=== PATIENT | female | born 1960 | race Caucasian/White ===

== ENCOUNTER 2021-02-02 20:31 | Inpatient (IN) | payer OTHER, SELFPAY ==
[2021-02-02 20:28] VITALS: BP 159/73; PULSE 96; RESP 16; TEMP 37; O2SAT 95; BMI 43.5
[2021-02-02 20:32] VITALS: BMI 43.5
--- NOTE | 2021-02-02 20:33 | XR_ITS ---
PROCEDURE INFORMATION: Exam: XR Chest Exam date and time: 02/02/2021 8:33 PM Age: 60 years old Clinical indication: Shortness of breath; Additional info: SOA TECHNIQUE: Imaging protocol: XR of the chest. Views: 2 views. COMPARISON: No relevant prior studies available. FINDINGS: Lungs: Patchy bilateral airspace opacities are seen. Pleural spaces: Unremarkable. No pleural effusion. No pneumothorax. Heart/Mediastinum: Unremarkable. No cardiomegaly. Bones/joints: Unremarkable. IMPRESSION: Patchy bilateral airspace opacities concerning for infection
[2021-02-02 20:41] LABS: Influenza A, PCR Not Detected (NotDetected); Influenza B, PCR Not Detected (NotDetected)
[2021-02-02 20:43] LABS: Basophils % 0.9 % (0.1-2.0); Eosinophils % 0.3 % (0.1-12.0); Hematocrit 41.9 % (37.0-47.0); Hemoglobin 14.2 g/dL (12.2-16.2); Lymphocytes # 0.9 K/mm3 (0.7-4.5); Lymphocytes % 20.7 % (10-50); Mean Corpuscular HGB Conc 33.8 g/dL (31.8-35.4); Mean Corpuscular Hemoglobin 31.9 pg (27.0-31.2); Mean Corpuscular Volume 94.3 fl (81-99); Mean Platelet Volume 7.9 fl (7.4-10.4); Monocytes # 0.4 K/mm3 (0.1-1.0); Monocytes % 8.6 % (1.7-9.3); Neutrophils # 3.1 K/mm3 (1.8-7.8); Neutrophils % 69.6 % (37.0-80.0); Platelet Count 409 K/mm3 (142-424); Red Blood Count 4.44 M/mm3 (4.20-5.40); Red Cell Distribution Width 12.5 % (11.5-17.5); White Blood Count 4.5 K/mm3 (4.8-10.8)
[2021-02-02 20:45] LABS: Chloride 97 mmol/L (98-107)
[2021-02-02 20:46] LABS: Potassium 3.4 mmoL/L (3.5-5.1); Sodium 137 mmol/L (136-145)
[2021-02-02 20:48] LABS: Alanine Aminotransferase 53 U/L (12-78); Alkaline Phosphatase 98 U/L (38-126); Aspartate Amino Transferase 62 U/L (14-36); Bilirubin,Total 0.4 mg/dl (0.2-1.3); Blood Urea Nitrogen 8 mg/dl (7-17); Creatinine Clearance Estimated 112 mL/min (50-200); Estimated Glomerular Filt Rate 126 ml/min (>60); GFR (African American) 152 ML/MIN (>60)
[2021-02-02 20:49] LABS: Albumin Level 3.7 g/dl (3.5-5.0); Albumin/Globulin Ratio 1.1 (1.1-1.8); Anion Gap 12.4 mEq/L (5-15); Calcium 9.1 mg/dl (8.4-10.2); Carbon Dioxide 31 mmol/L (22.0-30.0); Globulin 3.4 g/dL (1.3-3.2); Glucose 151 mg/dl (74-100); Total Protein,Serum 7.1 g/dl (6.3-8.2)
[2021-02-02 20:54] LABS: C-Reactive Protein 38.5 mg/L (0-4)
--- NOTE | 2021-02-02 21:05 | CT_ITS ---
PROCEDURE INFORMATION: Exam: CTA Chest With Contrast Exam date and time: 02/02/2021 9:05 PM Age: 60 years old Clinical indication: Cough and dyspnea; Patient HX: Covid R/O pe; Additional info: SOA TECHNIQUE: Imaging protocol: Computed tomographic angiography of the chest with contrast. 3D rendering (Not supervised by radiologist): MIP and/or 3D reconstructed images were created by the technologist. Radiation optimization: All CT scans at this facility use at least one of these dose optimization techniques: automated exposure control; mA and/or kV adjustment per patient size (includes targeted exams where dose is matched to clinical indication); or iterative reconstruction. Contrast material: ISOVUE 370; Contrast volume: 70 ml; Contrast route: INTRAVENOUS (IV); COMPARISON: CR XR CHEST 2V 02/02/2021 8:39 PM FINDINGS: Pulmonary arteries: Breathing motion limits exam. No evidence of pulmonary embolus to the lobar level. Aorta: Unremarkable. No aortic aneurysm. No aortic dissection. Lungs: Multifocal airspace opacities are seen. Pleural spaces: Unremarkable. No pneumothorax. No pleural effusion. Heart: Unremarkable. No cardiomegaly. No pericardial effusion. Lymph nodes: Mildly prominent mediastinal lymph nodes. Bones/joints: Unremarkable. No acute fracture. Soft tissues: Slightly asymmetric breast tissue. There is a probable lymph node seen on the right laterally that measures 10 mm. However, fatty hilum is not obvious. See image 121 of series 2. Recommend correlation with recent mammogram. IMPRESSION: 1. Breathing limits exam, but no evidence of pulmonary embolus to the lobar level. 2. Bilateral airspace disease compatible with infection. 3. Recommend correlation with recent mammography for better evaluation of probable lymph nodes and slightly asymmetric breast tissue.
--- NOTE | 2021-02-02 21:09 | HMH.EDSOB ---
ED Disposition Clinical Impression: Pneumonia due to COVID-19 virus Obesity Qualifiers: Obesity type: due to excess calories Obesity classification: adult class 3 (BMI >= 40) Serious obesity comorbidity presence: with serious comorbidity Body mass index: BMI 40.0-44.9 Qualified Code(s): E66.01 - Morbid (severe) obesity due to excess calories; Z68.41 - Body mass index [BMI]40.0-44.9, adult Disposition: Admitted as Observation Condition on Discharge: Good - Critical Care Critical Care Time: No Attestation: On 02/02/21, the high probability of a clinically significant, sudden or life threatening deterioration of the following system(s) required my full and direct attention, intervention and personal management. The time I documented below is in addition to time spent performing reported procedures but includes the following listed in this critical care notation. Medical Decision Making - Medical Records Medical records reviewed: Yes: I reviewed the patient's medical records. - [place] Inquiry Pt receiving controlled substance: No Vital Signs: 02/02/21 20:28 02/02/21 23:16 02/02/21 23:30 Temperature 98.6 F Temperature Source Oral Pulse Rate 92 H 92 H Pulse Rate [Right] 96 H Respiratory Rate 16 Blood Pressure 130/81 146/80 H Blood Pressure [Right Arm] 159/73 H Blood Pressure Mean [Right Arm] 101 Blood Pressure Source [Right Arm] Automatic Cuff 02 Sat by Pulse Oximetry 95 93 L 95 Oxygen Delivery Method Room Air 02/03/21 00:00 02/03/21 00:25 02/03/21 01:56 Temperature Temperature Source Pulse Rate 93 H 94 H 97 H Pulse Rate [Right] Respiratory Rate Blood Pressure 144/80 H 152/81 H 144/76 H Blood Pressure [Right Arm] Blood Pressure Mean [Right Arm] Blood Pressure Source [Right Arm] 02 Sat by Pulse Oximetry 93 L 88 L 91 L Oxygen Delivery Method 02/03/21 02:45 Temperature Temperature Source Pulse Rate 94 H Pulse Rate [Right] Respiratory Rate Blood Pressure 159/90 H Blood Pressure [Right Arm] Blood Pressure Mean [Right Arm] Blood Pressure Source [Right Arm] 02 Sat by Pulse Oximetry 90 L Oxygen Delivery Method - Lab Data Lab results reviewed: Yes: I reviewed the patient's lab results. Lab Results 02/02/21 20:30: WBC 4.5 L, RBC 4.44, Hgb 14.2, Hct 41.9, MCV 94.3, MCH 31.9 H, MCHC 33.8, RDW 12.5, Plt Count 409, MPV 7.9, Neut % (Auto) 69.6, Lymph % (Auto) 20.7, [place] % (Auto) 8.6, Eos % (Auto) 0.3, Baso % (Auto) 0.9, Neut # (Auto) 3.1, Lymph # (Auto) 0.9, [place] # (Auto) 0.4, Eos # (Auto) 0.0, Baso # (Auto) 0.0, ESR 93 H 02/02/21 20:30: Sodium 137, Potassium 3.4 L, Chloride 97 L, Carbon Dioxide 31 H, Anion Gap 12.4, BUN 8, Creatinine 0.50 L, Estimated Creat Clear 112, Estimated GFR 126, Est GFR ( Amer) 152, Glucose 151 H, Calcium 9.1, Total Bilirubin 0.4, AST 62 H, ALT 53, Alkaline Phosphatase 98, C-Reactive Protein 38.5 H, Total Protein 7.1, Albumin 3.7, Globulin 3.4 H, Albumin/Globulin Ratio 1.1, Procalcitonin 0.070 02/02/21 20:30: SARS-CoV-2 (PCR) Detected A, Influenza A Untype (PCR) Not detected, Influenza Type B (PCR) Not detected 02/02/21 20:30: Troponin I < 0.01 02/03/21 00:30: Troponin I < 0.01 Result diagrams: 02/02/21 20:30 02/02/21 20:30 Orders (Tests/Meds): ED MEDICATIONS Generic Name Dose Route Start Last Admin Trade Name Freq PRN Reason Stop Dose Admin Sodium Chloride 1,000 mls @ 999 mls/hr 02/02/21 20:45 02/02/21 20:59 Sod Chlor 0.9% 1000ml Bag IV 02/02/21 21:45 999 mls/hr .Q1H1M BO Administration Discontinued Medications Generic Name Dose Route Start Last Admin Trade Name Freq PRN Reason Stop Dose Admin Iopamidol 70 ml 02/02/21 22:01 02/02/21 22:02 Iopamidol-370 (76%);100ml Bottle IV 02/02/21 22:02 70 ml ONCE ONE Administration Ketorolac Tromethamine 30 mg 02/02/21 20:34 02/02/21 20:59 Ketorolac 30mg/Ml Vial IV 02/02/21 20:35 30 mg ONCE ONE Administration Methylprednisolone [place]
[2021-02-02 21:17] LABS: Coronavirus 19, PCR Detected (NotDetected)
[2021-02-02 21:19] LABS: Erythrocyte Sedimentation Rate 93 mm/hr (0-30)
[2021-02-02 21:29] LABS: Troponin I < 0.01 ng/ml (0.00-0.034)
--- NOTE | 2021-02-02 21:53 | PC.NURSE ---
to ct scan
[2021-02-02 23:16] VITALS: BP 130/81; PULSE 92; O2SAT 93
[2021-02-02 23:30] VITALS: BP 146/80; PULSE 92; O2SAT 95
[2021-02-03] VITALS (14 sets, daily range): BP systolic 136–168; BP diastolic 76–93; PULSE 84–98; RESP 16–22; TEMP 36.6–36.8; O2SAT 88–94; BMI 44.6
[2021-02-03 01:01] LABS: Troponin I < 0.01 ng/ml (0.00-0.034)
--- NOTE | 2021-02-03 02:45 | PC.NURSE ---
pt currently boarding in ER due to no bed available
[2021-02-03 04:59] LABS: Thyroid Stimulating Hormone 0.62 uIU/mL (0.465-4.68)
[2021-02-03 06:28] LABS: Basophils % 0.2 % (0.1-2.0); Eosinophils % 0.1 % (0.1-12.0); Hematocrit 42.5 % (37.0-47.0); Hemoglobin 14.5 g/dL (12.2-16.2); Lymphocytes # 0.4 K/mm3 (0.7-4.5); Lymphocytes % 15.6 % (10-50); Mean Corpuscular Hemoglobin 32.3 pg (27.0-31.2); Mean Corpuscular Volume 94.9 fl (81-99); Mean Platelet Volume 8.5 fl (7.4-10.4); Monocytes # 0.1 K/mm3 (0.1-1.0); Monocytes % 3.2 % (1.7-9.3); Neutrophils # 2.1 K/mm3 (1.8-7.8); Neutrophils % 80.9 % (37.0-80.0); Platelet Count 398 K/mm3 (142-424); Red Blood Count 4.48 M/mm3 (4.20-5.40); Red Cell Distribution Width 12.4 % (11.5-17.5); White Blood Count 2.6 K/mm3 (4.8-10.8)
[2021-02-03 06:33] LABS: Anion Gap 12.8 mEq/L (5-15); Blood Urea Nitrogen 11 mg/dl (7-17); Carbon Dioxide 29 mmol/L (22.0-30.0); Chloride 101 mmol/L (98-107); Chol/HDL Ratio 3.6 (1-3.5); Cholesterol 161 mg/dl (140-200); Creatinine Clearance Estimated 112 mL/min (50-200); Estimated Glomerular Filt Rate 126 ml/min (>60); GFR (African American) 152 ML/MIN (>60); Glucose 173 mg/dl (74-100); HDL Cholesterol 45 mg/dl (40-60); Magnesium 2.3 mg/dl (1.6-2.3); Potassium 3.8 mmoL/L (3.5-5.1); Sodium 139 mmol/L (136-145); Triglycerides 63 mg/dl (30-150); VLDL Cholesterol 13 mg/dL (0-40)
[2021-02-03 06:43] LABS: Direct LDL Cholesterol 86.31 mg/dL (100-129)
--- NOTE | 2021-02-03 07:45 | P.CONPHA_ITS ---
[facility] Pharmacy VTE Monitoring - Patient Demographics Admission date: 02/03/21 Report Date: 02/03/21 Time: 07:45 Allergies/Adverse Reactions: Patient Allergies No Known Allergies Allergy (Unverified 02/03/21 07:43) Height: 1.68 m Weight: 122.47 kg Patient Problems: Current Active Problems Pneumonia due to COVID-19 virus (Acute) Obesity (Acute) - VTE Risk Labs: VTE Related Lab Results Hgb 14.5 g/dL (12.2-16.2) 02/03/21 05:33 Hct 42.5 % (37.0-47.0) 02/03/21 05:33 Plt Count 398 K/mm3 (142-424) 02/03/21 05:33 BUN 11 mg/dl (7-17) D 02/03/21 05:33 Creatinine 0.50 mg/dl (0.52-1.04) L 02/03/21 05:33 Estimated Creat Clear 112 mL/min (50-200) 02/03/21 05:33 Clinical Trial Participant: No - Prophylaxis VTE Prophylaxis Ordered?: Yes Types of VTE Prophylaxis: TEDS Knee High
--- NOTE | 2021-02-03 08:02 | PC.NURSE ---
PT SITTING UP IN BED, O2 90% ON ROOM AIR, PLACED ON 2L NC. PT UP IN CHAIR FOR BREAKFAST.
--- NOTE | 2021-02-03 08:42 | PC.NURSE ---
spoke with dawitrn on second floor at this time, states she will call back after she finishes morning med pass, states that was okayed per house. States pt may need to board in ER a little longer r/t bed situation on the floor. manager of regulatory affairs made aware.
--- NOTE | 2021-02-03 09:25 | HMH.PULMCON ---
*Admission Date: 02/03/21 *Reason for consult:: Acute hypoxic respiratory failure, COVID-19 pneumonia *History of present illness: Ms. Martinez is 68-year-old female never smoker no prior respiratory complaints yet to be vaccinated presented to the hospital with complaints of worsening fatigue body pains along with worsening respiratory distress with cough and productive phlegm and when patient presented to the ED supplementation to maintain her O2 saturations at the desired level and pulmonary was called for further management. [facility] History *Have you ever received a pneumonia vaccine?: No *Have you received a flu vaccine this season?: No Other Surgeries: Yes: Other - *Social History Last grade of school completed: Some college Smoking Status: Never smoker Alcohol Intake: never Substance Use Type: denies use *Occupational Status:: other *Travel in the last 8 weeks: None Family Hx:: Other ROS - Cons Reports anorexia, Reports body ache(s), Reports chills - ENT Denies abnormal hearing - Card Reports shortness of breath, Reports shortness of breath with activity - Resp Respiratory: Reports chest congestion, Reports cough, Reports cough with sputum production - GI Gastrointestingal: Denies: abdominal pain - [place] Musculoskeletal: Denies deformity - Psych Reports abnormal sleep pattern Meds Home Medications Medication Instructions Recorded Confirmed Type No Known Home Medications 02/02/21 02/02/21 History Allergies Allergy/AdvReac Type Severity Reaction Status Date / Time No Known Allergies Allergy Unverified 02/03/21 07:43 Exam - Constitutional Constitutional:: Present: no acute distress, comfortable - HENMT Exam HENMT: Present: normocephalic, atraumatic - Eye Exam Eyes:: Present: normal appearance both eyes and related structures - Neck Exam Neck:: Present: normal visual inspection - Respiratory Exam Respiratory:: Present: able to speak in complete sentences, no respiratory distress, rales. Absent: wheezing - Cardiovascular Exam Cardiac:: Present: S1, S2 - GI Exam GI:: Present: soft, no hepatosplenomegaly - Skin Exam Skin: Present: warm, no rash - Neurological Exam Neurological: Present: alert, awake, normal cognition - Extremities Exam Extremities: Present: no cyanosis, no clubbing, no edema Internal Medicine - CN: Reslt - Labs CBC & Chem 7: 02/03/21 05:33 02/03/21 05:33 Labs: Short CBC 02/02/21 02/03/21 Range/Units 20:30 05:33 WBC 4.5 L 2.6 L D (4.8-10.8) K/mm3 Hgb 14.2 14.5 (12.2-16.2) g/dL Hct 41.9 42.5 (37.0-47.0) % Plt Count 409 398 (142-424) K/mm3 BMP 02/02/21 02/03/21 20:30 05:33 Sodium 137 139 Potassium 3.4 L 3.8 Chloride 97 L 101 Carbon Dioxide 31 H 29 BUN 8 11 D Creatinine 0.50 L 0.50 L Glucose 151 H 173 H Calcium 9.1 9.0 Cardiac Enzymes 02/02/21 02/03/21 Range/Units 20:30 00:30 Troponin I < 0.01 < 0.01 (0.00-0.034) ng/ml Liver Function 02/02/21 Range/Units 20:30 Total Bilirubin 0.4 (0.2-1.3) mg/dl AST 62 H (14-36) U/L ALT 53 (12-78) U/L Alkaline Phosphatase 98 (38-126) U/L Albumin 3.7 (3.5-5.0) g/dl Assessment and Plan - Assessment and plan all Dx Assessment and Plan for all problems:: #Acute hypoxic respiratory failure: #COVID-19 pneumonia: 60-year-old female no prior respiratory complaints. Never smoker. CT pulmonary nodule and several months of bilateral patchy airspace disease. Patient also noted to have mild nonspecific enlargement of mediastinal lymphadenopathy will be followed with repeat CT chest without contrast on outpatient basis post discharge. Patient also have soft tissue abnormalities that are recommended to be correlated by mammogram will defer this to primary team. Leukopenia with lymphopenia noted. CRP elevated at 38.5. Patient today on examination does not appear to be in any respiratory distress. She is on 2 L nasal cannula
--- NOTE | 2021-02-03 09:57 | PC.NURSE ---
REPORT GIVEN TO ODALYS SCHNEIDER.
--- NOTE | 2021-02-03 10:22 | HMH.HP ---
*Admission Date: 02/03/21 *Chief complaint: sob *History of present illness: this patient presented to [place] ed via ems with progressive malaise and sob with cough and dec po intake - pt with no def exposure to covid-19 - no vaccine - pt was seen in the ed with abn cxr and ct chest and had low pulse oxy with positive covid-19 and was admitted - [facility] History I have reviewed the patient's past medical history: Yes *Have you ever received a pneumonia vaccine?: No *Have you received a flu vaccine this season?: No - *Social History Smoking Status: Never smoker Alcohol Intake: never Substance Use Type: denies use *Occupational Status:: previously employed *Travel in the last 8 weeks: None Family Hx:: Non-contributory Review of Systems - Review of Systems Review of systems:: pertinent systems reviewed and negative unless documented below - Constitutional Reports fatigue, Reports malaise, Reports weakness, Denies fever(s) - Eyes Denies change in vision - ENT Denies sore throat - *Cardiovascular Reports shortness of breath, Denies chest pain - *Respiratory Reports cough, Reports shortness of breath, Denies coughing up blood - *Gastrointestinal Reports nausea, Denies abdominal pain, Denies vomiting - *Genitourinary Denies pelvic pain - *Musculoskeletal Denies joint pain - Integumentary/Breasts Denies rash - *Neurologic Denies localized weakness, Denies headache(s), Denies seizure-like activity - Psychiatric Denies confusion Meds Home Medications Medication Instructions Recorded Confirmed Type No Known Home Medications 02/02/21 02/02/21 History Allergies Allergy/AdvReac Type Severity Reaction Status Date / Time No Known Allergies Allergy Unverified 02/03/21 07:43 Exam Vital signs and Labs for Last 24 Hours: Temp Pulse Resp BP Pulse Ox 97.8 F 96 H 18 168/83 H 89 L 02/03/21 08:05 02/03/21 08:05 02/03/21 08:05 02/03/21 08:05 02/03/21 04:30 Laboratory Results - last 24 hr 02/02/21 20:30: WBC 4.5 L, RBC 4.44, Hgb 14.2, Hct 41.9, MCV 94.3, MCH 31.9 H, MCHC 33.8, RDW 12.5, Plt Count 409, MPV 7.9, Neut % (Auto) 69.6, Lymph % (Auto) 20.7, [place] % (Auto) 8.6, Eos % (Auto) 0.3, Baso % (Auto) 0.9, Neut # (Auto) 3.1, Lymph # (Auto) 0.9, [place] # (Auto) 0.4, Eos # (Auto) 0.0, Baso # (Auto) 0.0, ESR 93 H 02/02/21 20:30: Sodium 137, Potassium 3.4 L, Chloride 97 L, Carbon Dioxide 31 H, Anion Gap 12.4, BUN 8, Creatinine 0.50 L, Estimated Creat Clear 112, Estimated GFR 126, Est GFR ( Amer) 152, Glucose 151 H, Calcium 9.1, Total Bilirubin 0.4, AST 62 H, ALT 53, Alkaline Phosphatase 98, C-Reactive Protein 38.5 H, Total Protein 7.1, Albumin 3.7, Globulin 3.4 H, Albumin/Globulin Ratio 1.1, Procalcitonin 0.070 02/02/21 20:30: SARS-CoV-2 (PCR) Detected A, Influenza A Untype (PCR) Not detected, Influenza Type B (PCR) Not detected 02/02/21 20:30: Troponin I < 0.01 02/03/21 00:30: Troponin I < 0.01 02/03/21 00:30: TSH 0.62, Thyroxine (T4) 12.0 H 02/03/21 05:33: WBC 2.6 L D, RBC 4.48, Hgb 14.5, Hct 42.5, MCV 94.9, MCH 32.3 H, MCHC 34.0, RDW 12.4, Plt Count 398, MPV 8.5, Neut % (Auto) 80.9 H, Lymph % (Auto) 15.6, [place] % (Auto) 3.2, Eos % (Auto) 0.1, Baso % (Auto) 0.2, Neut # (Auto) 2.1, Lymph # (Auto) 0.4 L, [place] # (Auto) 0.1, Eos # (Auto) 0.0, Baso # (Auto) 0.0 02/03/21 05:33: Sodium 139, Potassium 3.8, Chloride 101, Carbon Dioxide 29, Anion Gap 12.8, BUN 11 D, Creatinine 0.50 L, Estimated Creat Clear 112, Estimated GFR 126, Est GFR ( Amer) 152, Glucose 173 H, Calcium 9.0, Magnesium 2.3, Triglycerides 63, Cholesterol 161, LDL Cholesterol Direct 86.31 L, VLDL Cholesterol 13, HDL Cholesterol 45, Cholesterol/HDL Ratio 3.6 H I & O for Last 24 hours: Intake & Output 01/31/21 02/01/21 02/02/21 02/03/21 11:59 11:59 11:59 11:59 Weight 270 lb - Constitutional no acute distress, obese - *Routine HEENT Exam Head: Present: normocephalic Eye: Present: EOMI, PERRL ENT: Present: mucous membran
--- NOTE | 2021-02-03 15:38 | PC.NURSE ---
PT IS RESTING IN BED. NO COMPLAINTS OF DISCOMFORT. PT STATES SHE IS FEELING BETTER SINCE ARRIVING TO THE HOSPITAL. O2 SATURATION HAS MAINTAINED 92-95% ON 2 L NC. PT HAS BEEN AMBULATING TO THE BATHROOM. EATING AND DRINKING WELL. LUNG SOUNDS DIMINISHED. ABDOMEN SOFT/NON TENDER WITH ACTIVE BOWEL SOUNDS.VSS. WILL CONTINUE TO MONITOR.
[2021-02-04] VITALS: BP 137/71; PULSE 76; RESP 18; TEMP 36.3; O2SAT 96
[2021-02-04 04:00] VITALS: BP 156/90; PULSE 89; RESP 16; TEMP 36.5; O2SAT 94
--- NOTE | 2021-02-04 04:31 | PC.NURSE ---
pt AxOx4, has remained on 2L NC for the shift, O2 sats 91-96%, has not complained of SOA
[2021-02-04 05:04] VITALS: BMI 44.1
[2021-02-04 06:50] VITALS: O2SAT 94
[2021-02-04 07:12] LABS: Basophils % 0.7 % (0.1-2.0); Eosinophils % 0.7 % (0.1-12.0); Hematocrit 39.1 % (37.0-47.0); Hemoglobin 12.8 g/dL (12.2-16.2); Lymphocytes # 1.4 K/mm3 (0.7-4.5); Lymphocytes % 21.5 % (10-50); Mean Corpuscular HGB Conc 32.8 g/dL (31.8-35.4); Mean Corpuscular Hemoglobin 31.6 pg (27.0-31.2); Mean Corpuscular Volume 96.3 fl (81-99); Mean Platelet Volume 10.8 fl (7.4-10.4); Monocytes # 0.9 K/mm3 (0.1-1.0); Monocytes % 13.5 % (1.7-9.3); Neutrophils % 63.7 % (37.0-80.0); Platelet Count 326 K/mm3 (142-424); Red Blood Count 4.06 M/mm3 (4.20-5.40); Red Cell Distribution Width 12.6 % (11.5-17.5); White Blood Count 6.3 K/mm3 (4.8-10.8)
[2021-02-04 07:38] LABS: Blood Urea Nitrogen 19 mg/dl (7-17); Calcium 8.6 mg/dl (8.4-10.2); Carbon Dioxide 27 mmol/L (22.0-30.0); Chloride 106 mmol/L (98-107); Chol/HDL Ratio 4.6 (1-3.5); Cholesterol 132 mg/dl (140-200); Creatinine Clearance Estimated 112 mL/min (50-200); Estimated Glomerular Filt Rate 126 ml/min (>60); GFR (African American) 152 ML/MIN (>60); Glucose 112 mg/dl (74-100); HDL Cholesterol 29 mg/dl (40-60); Magnesium 2.2 mg/dl (1.6-2.3); Sodium 141 mmol/L (136-145); Triglycerides 69 mg/dl (30-150); VLDL Cholesterol 14 mg/dL (0-40)
[2021-02-04 07:49] LABS: Direct LDL Cholesterol 79.32 mg/dL (100-129)
[2021-02-04 08:00] VITALS: BP 141/69; PULSE 84; RESP 20; TEMP 36.9; O2SAT 94
[2021-02-04 08:46] LABS: Alanine Aminotransferase 46 U/L (12-78); Alkaline Phosphatase 78 U/L (38-126); Aspartate Amino Transferase 47 U/L (14-36); Bilirubin,Direct 0.1 mg/dl (0.0-0.4); Bilirubin,Indirect 0.1 mg/dL (0.0-0.9); Bilirubin,Total 0.2 mg/dl (0.2-1.3); Bilirubin,Unconjugated 0.1 mg/dL (0.0-1.1)
--- NOTE | 2021-02-04 09:35 | HMH.PULMPN ---
Internal Medicine - PN: Subj *Date: 02/04/21 *Time: 13:50 Interval history: No acute respiratory events overnight. Patient continued to improve. Exam - Constitutional Constitutional:: Present: no acute distress, comfortable - HENMT Exam HENMT: Present: normocephalic, atraumatic - Eye Exam Eyes:: Present: normal appearance both eyes and related structures - Neck Exam Neck:: Present: normal visual inspection - Respiratory Exam Respiratory:: Present: able to speak in complete sentences, no respiratory distress. Absent: crackles, wheezing - Cardiovascular Exam Cardiac:: Present: S1, S2 - GI Exam GI:: Present: soft - Skin Exam Skin: Present: warm - Neurological Exam Neurological: Present: alert, awake, normal cognition - Extremities Exam Extremities: Present: no cyanosis, no clubbing, no edema Assessment and Plan (1) Pneumonia due to COVID-19 virus Status: Acute Category: Medical Code(s): U07.1 - COVID-19; J12.82 - Pneumonia due to coronavirus disease 2019 (2) Obesity Status: Acute Qualifiers: Obesity type: due to excess calories Obesity classification: adult class 3 (BMI >= 40) Serious obesity comorbidity presence: with serious comorbidity Body mass index: BMI 40.0-44.9 Qualified Code(s): E66.01 - Morbid (severe) obesity due to excess calories; Z68.41 - Body mass index [BMI]40.0-44.9, adult Category: Medical Code(s): E66.9 - Obesity, unspecified (3) Respiratory failure with hypoxia Status: Acute Category: Medical Code(s): J96.91 - Respiratory failure, unspecified with hypoxia (4) Acute respiratory failure due to COVID-19 Status: Acute Category: Medical Code(s): U07.1 - COVID-19; J96.00 - Acute respiratory failure, unspecified whether with hypoxia or hypercapnia (5) Neutropenia Status: Acute Qualifiers: Neutropenia type: unspecified Qualified Code(s): D70.9 - Neutropenia, unspecified Category: Medical Code(s): D70.9 - Neutropenia, unspecified (6) Elevated erythrocyte sedimentation rate Status: Acute Category: Medical Code(s): R70.0 - Elevated erythrocyte sedimentation rate - Assessment and plan all Dx Assessment and Plan for all problems:: #Acute hypoxic respiratory failure: #COVID-19 pneumonia: 60-year-old female no prior respiratory complaints. Never smoker. CT pulmonary nodule and several months of bilateral patchy airspace disease. Patient also noted to have mild nonspecific enlargement of mediastinal lymphadenopathy will be followed with repeat CT chest without contrast on outpatient basis post discharge. Patient also have soft tissue abnormalities that are recommended to be correlated by mammogram will defer this to primary team. Leukopenia with lymphopenia noted. CRP elevated at 38.5. Patient respiratory significantly improved, this morning on room air saturating 90 to 92%. Will perform 6-minute walk testing before discharge. Plan: -Continue remdesivir and dexamethasone for COVID-19 pneumonia until discharge. Can be discharged on oral dexamethasone for a total of 5 days -Doxycycline 100 twice dailyx 5 days -Advair twice daily, can be discharged on albuterol every 6 hours as needed Thank you for involving pulmonary in this patient care. We will follow the patient in pulmonary clinic in 4 to 6 weeks.
--- NOTE | 2021-02-04 09:49 | SW/DCPLANNER ---
Addendum entered by Priya Love 02/04/21 10:08: Felicia with [facility] has stated that information/order has been reviewed and [employer] will be delivering portable tank to patients room. Original Note: Patient information/order has been faxed to [facility] for home O2/portable. I will follow up with [employer] once patient information/order is reviewed. Patient will discharge home today.
--- NOTE | 2021-02-04 11:27 | PC.NURSE ---
pt's room air saturation 80%
--- NOTE | 2021-02-04 11:55 | HMH.DCSUM ---
General - General Admission date:: 02/03/21 Discharge date: 02/04/21 HPI HPI: this patient presented to [facility] ed via ems with progressive malaise and sob with cough and dec po intake - pt with no def exposure to covid-19 - no vaccine - pt was seen in the ed with abn cxr and ct chest and had low pulse oxy with positive covid-19 and was admitted - Hospital Course Hospital Course: this patient presented to [facility] ed via ems with progressive malaise and sob with cough and dec po intake - pt with no def exposure to covid-19 - no vaccine - pt was seen in the ed with abn cxr and ct chest and had low pulse oxy with positive covid-19 and was admitted - 02/02/21 CXR: FINDINGS: Lungs: Patchy bilateral airspace opacities are seen. Pleural spaces: Unremarkable. No pleural effusion. No pneumothorax. Heart/Mediastinum: Unremarkable. No cardiomegaly. Bones/joints: Unremarkable. IMPRESSION: Patchy bilateral airspace opacities concerning for infection Electronically signed by Dar Darden MD 02/02/21 Chest CTA: FINDINGS: Pulmonary arteries: Breathing motion limits exam. No evidence of pulmonary embolus to the lobar level. Aorta: Unremarkable. No aortic aneurysm. No aortic dissection. Lungs: Multifocal airspace opacities are seen. Pleural spaces: Unremarkable. No pneumothorax. No pleural effusion. Heart: Unremarkable. No cardiomegaly. No pericardial effusion. Lymph nodes: Mildly prominent mediastinal lymph nodes. Bones/joints: Unremarkable. No acute fracture. Soft tissues: Slightly asymmetric breast tissue. There is a probable lymph node seen on the right laterally that measures 10 mm. However, fatty hilum is not obvious. See image 121 of series 2. Recommend correlation with recent mammogram. IMPRESSION: 1. Breathing limits exam, but no evidence of pulmonary embolus to the lobar level. 2. Bilateral airspace disease compatible with infection. 3. Recommend correlation with recent mammography for better evaluation of probable lymph nodes and slightly asymmetric breast tissue. Electronically signed by Dar Darden MD Pulmonary has seen and recommends: CT pulmonary nodule and several months of bilateral patchy airspace disease. Patient also noted to have mild nonspecific enlargement of mediastinal lymphadenopathy will be followed with repeat CT chest without contrast on outpatient basis post discharge. Patient also have soft tissue abnormalities that are recommended to be correlated by mammogram will defer this to primary team. Leukopenia with lymphopenia noted. CRP elevated at 38.5. Patient today on examination does not appear to be in any respiratory distress. She is on 2 L nasal cannula with saturations maintaining >92% Plan: -Continue remdesivir and dexamethasone for COVID-19 pneumonia. Can be discharged on oral dexamethasone for a total of 5 days -Doxycycline 100 twice dailyx 5 days -Advair twice daily, can be discharged on albuterol every 6 hours as needed 60-year-old female patient lying in bed resting quietly with eyes closed, awakens to verbal stimuli. Current oxygenation 94% on 2L per nasal cannula. She denies any respiratory distress or increased shortness of breath during the night. Discussed discharge home with her today, she is agreement to this PLAN: 1. We will discharge home today 2. Prednisone 40 mg daily x5 days 3. Doxycycline 100 mg twice daily x5 days 4. Home O2 5. Follow-up with PCP in 1 week 6. Follow-up with pulmonology in 1 month 7. Advair twice daily Objective Vital signs: Temp Pulse Resp BP Pulse Ox 98.5 F 84 20 141/69 H 94 L 02/04/21 08:00 02/04/21 08:00 02/04/21 08:00 02/04/21 08:00 02/04/21 08:00 no acute distress, morbidly obese - *Routine HEENT Exam Head: Present: normocephalic Eye: Present: EOMI ENT: Present: mucous membranes moist - *Routine Neck Exam Present: supple. Absent: tracheal deviation - *Rou
--- NOTE | 2021-02-04 12:17 | PC.NURSE ---
room air saturation 93%
[2021-02-04 13:46] VITALS: BP 142/86; PULSE 93; RESP 20; TEMP 36.7; O2SAT 95
== END 2021-02-04 15:20 | disposition home or self-care (01) | DRG 177 ==
LOC: ER 20:33 → 2ND 02-03 03:24
PROVIDERS: Internal Medicine Pulmonary Disease; Admitting Provider Emergency Medicine; Emergency Provider Emergency Medicine; PCP Family Medicine; Visit Provider Emergency Medicine
DX: U07.1 COVID-19 (principal); J12.82 Pneumonia due to coronavirus disease 2019; J96.01 Acute respiratory failure with hypoxia; Z68.41 Body mass index [BMI] 40.0-44.9, adult; Z79.899 Other long term (current) drug therapy; D70.9 Neutropenia, unspecified; E66.01 Morbid (severe) obesity due to excess calories
CPT/HCPCS: 36415; 71046; 71275; 80048; 80053; 80061; 80076; 83735; 84145; 84436; 84443; 84484; 85025; 85651; 86140; 94640; 96365; 96375; 99284; C9803; J2405; Q9967; U0003; U0005

== ENCOUNTER 2021-09-26 07:55 | Emergency (ER) | payer BC, SELFPAY ==
[2021-09-26 08:06] VITALS: BMI 44.4
[2021-09-26 08:07] VITALS: BP 152/89; PULSE 105; RESP 20; TEMP 37.1; O2SAT 97; BMI 44.4
[2021-09-26 08:08] LABS: Microscopic, Urine URINE MICROSCOPIC (MICROSCOPIC)
[2021-09-26 08:09] LABS: Appearance,Urine CLEAR (Clear); Bilirubin,Urine Negative (Negative); Blood, Urine Negative (Negative); Color,Urine YELLOW (Yellow); Glucose,Urine (UA) Negative (Negative); Ketones,Urine Negative (Negative); Leukocyte Esterase,Urine Negative (Negative); Nitrate,Urine Negative (Negative); Protein,Urine Negative (Negative); Urobilinogen,Urine 0.2 EU/dl (0.2)
--- NOTE | 2021-09-26 08:15 | CT_ITS ---
PROCEDURE INFORMATION: Exam: CT Abdomen And Pelvis Without Contrast Exam date and time: 09/26/2021 8:49 AM Age: 61 years old Clinical indication: Abdominal pain; Flank; Left; Additional info: R/O kidney stone// left greater than right flank pain and lower abd TECHNIQUE: Imaging protocol: Computed tomography of the abdomen and pelvis without contrast. Radiation optimization: All CT scans at this facility use at least one of these dose optimization techniques: automated exposure control; mA and/or kV adjustment per patient size (includes targeted exams where dose is matched to clinical indication); or iterative reconstruction. COMPARISON: None FINDINGS: Detailed evaluation of the abdominal and pelvic viscera is somewhat limited in the absence of intravenous contrast. Inferior thorax: Subsegmental basilar atelectasis. Coronary artery calcification. Liver: Fatty infiltration of the liver. Gallbladder and bile ducts: Unremarkable gallbladder. Pancreas: No pancreatic mass or ductal dilatation. Spleen: No splenomegaly. Adrenal glands: Unremarkable adrenals. Kidneys and ureters: Normal renal morphology. No hydronephrosis or urolithiasis. Bilateral infiltration of perinephric fat. Stomach and bowel: Colonic dilatation. Diverticula, without pericolonic inflammation. Cecal wall thickening. Appendix: Poorly defined complex fluid collection in the right lower quadrant with approximate measurements 5.8 by 5.1 by 5.7 cm, with infiltration of surrounding mesenteric fat. The appearance would be suggestive of abscess, presumably appendiceal in origin, with the appendix currently not visualized. Intraperitoneal space: Small quantity of free fluid in the right lower quadrant. Vasculature: Vascular calcification. No abdominal aortic aneurysm. Lymph nodes: Localized mesenteric lymph nodes in the right mid abdomen, the largest measuring 15 x 11 x 16 mm. Urinary bladder: Nondistended bladder. Reproductive: Punctate left uterine calcification. Bones/joints: 13 mm intraosseous hemangioma in the L2 vertebral body. Degenerative change. Soft tissues: Calcification at the gluteal muscle attachment sites. IMPRESSION: 1. Poorly defined complex fluid collection in the right lower quadrant with approximate measurements 5.8 by 5.1 by 5.7 cm, with infiltration of surrounding mesenteric fat. The appearance would be suggestive of abscess, presumably appendiceal in origin, with the appendix currently not visualized. 2. Additional findings as described above. The aforementioned findings initiated a critical results communication pathway. An addendum will be issued at the time of clincian notification.
[2021-09-26 08:27] LABS: Bacteria,Urine 2+ /lpf; RBC,Urine Occasional #/hpf (0-3); Squamous Epithelial Cell,Urine 20-50 #/hpf (0-5)
[2021-09-26 08:28] LABS: Amorphous Sediment,Urine Trace /lpf
--- NOTE | 2021-09-26 08:29 | HMH.EDGENADL ---
ED Disposition Clinical Impression: Ruptured appendix, Appendiceal abscess Disposition: Xfer Short-Term Hosp Condition on Discharge: Fair Instructions: DI for Urinary Tract Infection (UTI), DI for Urinary Tract Infection in Children Referrals: Bree Guerrero [Primary Care Provider] - - Critical Care Critical Care Time: No Attestation: On 09/26/21, the high probability of a clinically significant, sudden or life threatening deterioration of the following system(s) required my full and direct attention, intervention and personal management. The time I documented below is in addition to time spent performing reported procedures but includes the following listed in this critical care notation. Medical Decision Making - Renard Inquiry Pt receiving controlled substance: No Vital Signs: 09/26/21 08:07 09/26/21 09:01 09/26/21 09:30 Temperature 98.7 F Temperature Source Oral Pulse Rate 93 H 97 H Pulse Rate [Left Radial] 105 H Respiratory Rate 20 Blood Pressure 141/83 H 147/82 H Blood Pressure [Right Arm] 152/89 H Blood Pressure Mean 102 107 Blood Pressure Mean [Right Arm] 110 02 Sat by Pulse Oximetry 97 98 97 Oxygen Delivery Method Room Air 09/26/21 10:01 Temperature Temperature Source Pulse Rate 99 H Pulse Rate [Left Radial] Respiratory Rate Blood Pressure 160/83 H Blood Pressure [Right Arm] Blood Pressure Mean 108 Blood Pressure Mean [Right Arm] 02 Sat by Pulse Oximetry 99 Oxygen Delivery Method - Lab Data Lab Results 09/26/21 08:06: Urine Color Yellow, Urine Appearance Clear, Urine pH 8.0, Ur Specific Goff 1.020, Urine Protein Negative, Urine Glucose (UA) Negative, Urine Ketones Negative, Urine Blood Negative, Urine Nitrate Negative, Urine Bilirubin Negative, Urine Urobilinogen 0.2, Ur Leukocyte Esterase Negative, Urine RBC Occasional, Urine WBC 3-5, Ur Squamous Epith Cells 20-50, Amorphous Sediment Trace, Urine Bacteria 2+ 09/26/21 08:20: WBC 6.7, RBC 4.24, Hgb 13.7, Hct 40.4, MCV 95.4, MCH 32.3 H, MCHC 33.9, RDW 12.5, Plt Count 520 H, MPV 7.3 L, Neut % (Auto) 76.6, Lymph % (Auto) 16.3, Schleicher % (Auto) 4.6, Eos % (Auto) 1.3, Baso % (Auto) 1.2, Neut # (Auto) 5.2, Lymph # (Auto) 1.1, Schleicher # (Auto) 0.3, Eos # (Auto) 0.1, Baso # (Auto) 0.1 09/26/21 08:20: Sodium 139, Potassium 4.1, Chloride 103, Carbon Dioxide 31 H, Anion Gap 9.1, BUN 9, Creatinine 0.50 L, Estimated Creat Clear 55, Estimated GFR 125, Est GFR ( Amer) 152, Glucose 154 H, Calcium 9.4, Total Bilirubin 0.2, AST 23, ALT 22, Alkaline Phosphatase 122, Total Protein 6.8, Albumin 3.5, Globulin 3.3 H, Albumin/Globulin Ratio 1.1 09/26/21 08:20: Lipase 46 09/26/21 08:20: ESR 65 H 09/26/21 08:20: C-Reactive Protein 38.6 H, Procalcitonin 0.088 09/26/21 10:38: SARS-CoV-2 (PCR) Not detected, Influenza A Untype (PCR) Not detected, Influenza Type B (PCR) Not detected Result diagrams: 09/26/21 08:20 09/26/21 08:20 Orders (Tests/Meds): ED MEDICATIONS Generic Name Dose Route Start Last Admin Trade Name Freq PRN Reason Stop Dose Admin Piperacillin Sod/Tazobactam 100 mls @ 200 mls/hr 09/26/21 10:00 09/26/21 10:08 Sod 4.5 gm/ Sodium Chloride IV 10/10/21 09:59 200 mls/hr Q8H BO Administration Sodium Chloride 10 ml 09/26/21 08:14 Sodium Chloride 0.9% 10ml Flush Syringe IV 10/26/21 08:13 NEEDED PRN Maintain IV Site Discontinued Medications Generic Name Dose Route Start Last Admin Trade Name Freq PRN Reason Stop Dose Admin Ketorolac Tromethamine 30 mg 09/26/21 08:36 09/26/21 08:38 Ketorolac 30mg/Ml Vial IV 09/26/21 08:37 30 mg ONCE ONE Administration ORDERS Category Date Time Status Consult to Surgeon On-Call [Consult to On-Call Gen'l Cons 09/26/21 09:52 Ordered Surgeon] [CONS] Routine Urine Culture Stat Micro 09/26/21 08:06 Received - CT Data CT Scan: Abdomen, Pelvis Time Received: 09:[address] Reviewed: Yes: I discussed the CT results w/the radiologist,
[2021-09-26 08:35] LABS: Basophils # 0.1 K/mm3 (0-0.2); Basophils % 1.2 % (0.1-2.0); Eosinophils # 0.1 K/mm3 (0.0-0.4); Eosinophils % 1.3 % (0.1-12.0); Hematocrit 40.4 % (37.0-47.0); Hemoglobin 13.7 g/dL (12.2-16.2); Lymphocytes # 1.1 K/mm3 (0.7-4.5); Lymphocytes % 16.3 % (10-50); Mean Corpuscular HGB Conc 33.9 g/dL (31.8-35.4); Mean Corpuscular Hemoglobin 32.3 pg (27.0-31.2); Mean Corpuscular Volume 95.4 fl (81-99); Mean Platelet Volume 7.3 fl (7.4-10.4); Monocytes # 0.3 K/mm3 (0.1-1.0); Monocytes % 4.6 % (1.7-9.3); Neutrophils # 5.2 K/mm3 (1.8-7.8); Neutrophils % 76.6 % (37.0-80.0); Platelet Count 520 K/mm3 (142-424); Red Blood Count 4.24 M/mm3 (4.20-5.40); Red Cell Distribution Width 12.5 % (11.5-17.5); White Blood Count 6.7 K/mm3 (4.8-10.8)
[2021-09-26 08:46] LABS: Chloride 103 mmol/L (98-107); Sodium 139 mmol/L (136-145)
[2021-09-26 08:47] LABS: Potassium 4.1 mmoL/L (3.5-5.1)
[2021-09-26 08:49] LABS: Alanine Aminotransferase 22 U/L (12-78); Albumin Level 3.5 g/dl (3.5-5.0); Albumin/Globulin Ratio 1.1 (1.1-1.8); Alkaline Phosphatase 122 U/L (38-126); Anion Gap 9.1 mEq/L (5-15); Aspartate Amino Transferase 23 U/L (14-36); Bilirubin,Total 0.2 mg/dl (0.2-1.3); Blood Urea Nitrogen 9 mg/dl (7-17); Carbon Dioxide 31 mmol/L (22.0-30.0); Creatinine Clearance Estimated 55 mL/min (50-200); Estimated Glomerular Filt Rate 125 ml/min (>60); GFR (African American) 152 ML/MIN (>60); Globulin 3.3 g/dL (1.3-3.2); Total Protein,Serum 6.8 g/dl (6.3-8.2)
[2021-09-26 08:50] LABS: Calcium 9.4 mg/dl (8.4-10.2); Glucose 154 mg/dl (74-100); Lipase 46 U/L (23-300)
--- NOTE | 2021-09-26 08:53 | PC.NURSE ---
Pt in RAD for CT
--- NOTE | 2021-09-26 08:59 | PC.NURSE ---
PT back from CT
[2021-09-26 09:01] VITALS: BP 141/83; PULSE 93; O2SAT 98
[2021-09-26 09:30] VITALS: BP 147/82; PULSE 97; O2SAT 97
--- NOTE | 2021-09-26 10:00 | PC.NURSE ---
page out to surgeon cement conveyor operator. admissions stated they left a message
[2021-09-26 10:01] VITALS: BP 160/83; PULSE 99; O2SAT 99
[2021-09-26 10:08] LABS: C-Reactive Protein 38.6 mg/L (0-4)
--- NOTE | 2021-09-26 10:20 | PC.NURSE ---
paged surgeon acquisitions logistics analyst again
--- NOTE | 2021-09-26 10:23 | PC.NURSE ---
speaking to dr jackson
[2021-09-26 10:29] LABS: Erythrocyte Sedimentation Rate 65 mm/hr (0-30)
--- NOTE | 2021-09-26 10:30 | PC.NURSE ---
surgeon space operations officer states to consult with radiology PA for drainage procedure
--- NOTE | 2021-09-26 10:37 | PC.NURSE ---
per radiology, radiology PA does not do abdominal drainage procedure and to refer to general surgery. surgeon resource economist paged again.
--- NOTE | 2021-09-26 10:40 | PC.NURSE ---
speaking with dr jakcson
--- NOTE | 2021-09-26 10:41 | PC.NURSE ---
tech obtained covid swab
--- NOTE | 2021-09-26 10:41 | PC.NURSE ---
ED MD in room to talk about transfer to another facility for procedure
--- NOTE | 2021-09-26 10:45 | PC.NURSE ---
dr webb states for pt to be transferred. spoke to pt who requests [facility] if possible. ray called at this time.
[2021-09-26 10:46] LABS: Coronavirus 19, PCR Not Detected (NotDetected); Influenza A, PCR Not Detected (NotDetected); Influenza B, PCR Not Detected (NotDetected)
--- NOTE | 2021-09-26 10:48 | PC.NURSE ---
made call to [facility]. centralized traffic control operator gen surgeon paged [phone]
[2021-09-26 10:51] LABS: Procalcitonin 0.088 ng/mL (0.0-2.0)
--- NOTE | 2021-09-26 11:01 | PC.NURSE ---
[facility] call center nurse called back. speaking to DR WOMACK. [facility] does not have interventional rad. RN asking what other [facility] hospital Pt would like to go to. pt say [facility]
--- NOTE | 2021-09-26 11:18 | PC.NURSE ---
[facility] call center paged GEN BARBOZA @[phone] faxing facesheet
--- NOTE | 2021-09-26 11:26 | PC.NURSE ---
Accepted at [facility], no bed available at this time.
--- NOTE | 2021-09-26 11:28 | PC.NURSE ---
calling [facility] transfer center for hospitalist
--- NOTE | 2021-09-26 11:30 | PC.NURSE ---
dr koenig calling to speak to
--- NOTE | 2021-09-26 11:34 | PC.NURSE ---
dr koenig accepts pt. states she will talk to the bed machine operator to determine an estimated waitlist time
--- NOTE | 2021-09-26 11:50 | PC.NURSE ---
hamilton at [facility] states pt is added to waitlist but is unable to give a time frame. she states she suspects hours due to pt waitlist volume
--- NOTE | 2021-09-26 11:54 | PC.NURSE ---
[facility] call back @ [phone] WOMACK
--- NOTE | 2021-09-26 11:56 | PC.NURSE ---
[facility] ACCEPTED PT. RN TO GIVE REPORT
--- NOTE | 2021-09-26 11:57 | PC.NURSE ---
pt accepted at [facility] by dr pollock
--- NOTE | 2021-09-26 12:03 | PC.NURSE ---
PT accepted at [facility] as direct admit. RN aware attepted to give report
--- NOTE | 2021-09-26 13:10 | PC.NURSE ---
[facility] at to transfer patient to [facility]
[2021-09-26 13:26] VITALS: BP 128/72; PULSE 96; RESP 18; TEMP 37.1; O2SAT 99
== END 2021-09-26 13:29 | disposition short-term general hospital (02) ==
PROVIDERS: Emergency Provider Emergency Medicine; PCP Family Medicine
DX: K35.33 Acute appendicitis with perforation, localized peritonitis, and gangrene, with abscess
CPT/HCPCS: 74176; 80053; 81001; 83690; 84145; 85025; 85651; 86140; 87086; 96365; 96375; 99284; C9803; J2543; U0003; U0005

== ENCOUNTER 2021-12-25 00:50 | Emergency (ER) | payer BC, SELFPAY ==
[2021-12-25 00:51] VITALS: BP 184/103; PULSE 90; RESP 20; TEMP 36.8; O2SAT 98; BMI 44.4
--- NOTE | 2021-12-25 01:45 | XR_ITS ---
PROCEDURE INFORMATION: Exam: XR Chest Exam date and time: 12/25/2021 2:08 AM Age: 61 years old Clinical indication: Other: Upper abdomen pain; Additional info: Upper abd pain TECHNIQUE: Imaging protocol: Radiologic exam of the chest. Views: 2 views. COMPARISON: CR XR CHEST 2V 02/02/2021 8:39 PM FINDINGS: Lungs: Lung volumes are mildly diminished. Nonspecific minor bibasilar streaky opacities suggest atelectasis or parenchymal scarring. No focal areas of consolidation. Pleural spaces: No pleural effusions or appreciable adenopathy. Negative for pneumothorax. Heart/Mediastinum: Cardiac silhouette and pulmonary vasculature are within range of normal. Bones/joints: There is no evidence of acute fracture. The thoracic spine demonstrates mild degenerative changes at multiple levels. IMPRESSION: Lung volumes are mildly diminished. Nonspecific minor bibasilar streaky opacities suggest atelectasis or parenchymal scarring.
--- NOTE | 2021-12-25 01:45 | CT_ITS ---
PROCEDURE INFORMATION: Exam: CT Abdomen And Pelvis With Contrast Exam date and time: 12/25/2021 2:18 AM Age: 61 years old Clinical indication: Abdominal pain; Generalized; Additional info: Abd pain TECHNIQUE: Imaging protocol: Computed tomography of the abdomen and pelvis with contrast. Radiation optimization: All CT scans at this facility use at least one of these dose optimization techniques: automated exposure control; mA and/or kV adjustment per patient size (includes targeted exams where dose is matched to clinical indication); or iterative reconstruction. Contrast material: ISOVUE; Contrast volume: 75 ml; Contrast route: IV; COMPARISON: CT ABDOMEN PELVIS WO CON 09/26/2021 8:49 AM FINDINGS: Lungs: Nonspecific bibasilar streaky opacities suggest atelectasis or parenchymal scarring. The visualized lung bases are otherwise clear. Pleural spaces: There are no pleural effusions. Heart: The visualized portions of the heart are unremarkable. There is no evidence of pericardial fluid collections. Liver: There is diffuse decrease in hepatic parenchymal density consistent with fatty infiltration. There is mild enlargement of the liver measuring 19.4 cm in CC dimension. Gallbladder and bile ducts: The gallbladder is normal. Pancreas: The pancreas is normal. Spleen: The spleen is normal. Adrenal glands: The adrenal glands are normal. Kidneys and ureters: There is mild nonspecific bilateral inflammatory perinephric stranding. Stomach and bowel: The stomach is normal. The duodenum is unremarkable. Previously seen ill-defined complex fluid collection in the right lower quadrant is no longer seen. There is a somewhat tubular structure in the right lower quadrant adjacent to the cecum with mild peripheral enhancement now in this location which either reflects dilated appendix or small pericolonic fluid collection. There is minor adjacent fat stranding. The adjacent terminal ileum appears normal. The remainder of the colon appears normal.Unopacified loops of small bowel are within range of normal. Appendix: A normal appendix is not seen. Intraperitoneal space: There is no evidence of free intraperitoneal or pelvic fluid. No evidence of intraperitoneal free air. Vasculature: The aorta and iliac arteries demonstrate mild atherosclerotic calcification. There are a few benign phleboliths in the pelvis. Lymph nodes: There is no evidence of pathologic adenopathy. Urinary bladder: The bladder is normal. Reproductive: The uterus is normal. The left ovary is normal. The right ovary is normal. Bones/joints: The thoracolumbar spine demonstrates mild degenerative changes at multiple levels. Soft tissues: No significant soft tissue edema. IMPRESSION: 1. Replacing the previously seen ill-defined complex fluid collection in the right lower quadrant is a somewhat broad tubular structure adjacent to cecum with mild peripheral enhancement which either reflects dilated appendix or small pericolonic fluid collection with minor adjacent fat stranding. Cannot exclude abscess/appendicitis. Recommend surgical consultation. 2. Fatty hepatic infiltration. 3. Mild hepatomegaly. Findings were discussed with ROSARIO FRIED at 12/25/2021 3:24 AM EDT.
[2021-12-25 01:56] LABS: Appearance,Urine CLEAR (Clear); Bilirubin,Urine Negative (Negative); Blood, Urine Negative (Negative); Color,Urine YELLOW (Yellow); Glucose,Urine (UA) Negative (Negative); Ketones,Urine Negative (Negative); Leukocyte Esterase,Urine Negative (Negative); Nitrate,Urine Negative (Negative); PH,Urine 6.5 (5.0-8.5); Protein,Urine Negative (Negative); Urobilinogen,Urine 0.2 EU/dl (0.2)
[2021-12-25 01:58] LABS: Microscopic, Urine URINE MICROSCOPIC (MICROSCOPIC)
[2021-12-25 01:58] LABS: Basophils # 0.1 K/mm3 (0-0.2); Eosinophils # 0.2 K/mm3 (0.0-0.4); Eosinophils % 2.3 % (0.1-12.0); Hematocrit 44.6 % (37.0-47.0); Hemoglobin 14.2 g/dL (12.2-16.2); Lymphocytes # 1.7 K/mm3 (0.7-4.5); Lymphocytes % 18.9 % (10-50); Mean Corpuscular HGB Conc 31.7 g/dL (31.8-35.4); Mean Corpuscular Hemoglobin 30.9 pg (27.0-31.2); Mean Corpuscular Volume 97.3 fl (81-99); Mean Platelet Volume 8.6 fl (7.4-10.4); Monocytes # 0.4 K/mm3 (0.1-1.0); Neutrophils # 6.4 K/mm3 (1.8-7.8); Neutrophils % 72.9 % (37.0-80.0); Platelet Count 311 K/mm3 (142-424); Red Blood Count 4.59 M/mm3 (4.20-5.40); Red Cell Distribution Width 13.6 % (11.5-17.5); White Blood Count 8.8 K/mm3 (4.8-10.8)
[2021-12-25 02:02] LABS: Alanine Aminotransferase 30 U/L (12-78); Albumin Level 4.2 g/dl (3.5-5.0); Albumin/Globulin Ratio 1.4 (1.1-1.8); Alkaline Phosphatase 153 U/L (38-126); Amylase 46 U/L (30-110); Aspartate Amino Transferase 30 U/L (14-36); Blood Urea Nitrogen 13 mg/dl (7-17); Calcium 9.5 mg/dl (8.4-10.2); Carbon Dioxide 27 mmol/L (22.0-30.0); Chloride 105 mmol/L (98-107); Creatinine Clearance Estimated 55 mL/min (50-200); Estimated Glomerular Filt Rate 102 ml/min (>60); GFR (African American) 123 ML/MIN (>60); Glucose 142 mg/dl (74-100); Lipase 57 U/L (23-300); Sodium 140 mmol/L (136-145); Total Protein,Serum 7.2 g/dl (6.3-8.2)
[2021-12-25 02:10] LABS: Bilirubin,Total < 0.1 mg/dl (0.2-1.3)
[2021-12-25 02:26] LABS: Erythrocyte Sedimentation Rate 19 mm/hr (0-30)
--- NOTE | 2021-12-25 02:27 | HMH.EDNVD ---
ED Disposition Clinical Impression: Disorder of appendix Abdominal pain Qualifiers: Abdominal location: right lower quadrant Qualified Code(s): R10.31 - Right lower quadrant pain Disposition: Home, Self-Care Condition on Discharge: Good Instructions: DI for Acute Abdominal Pain Additional Instructions: call for follow up Referrals: Bree Guerrero [Primary Care Provider] - - Critical Care Critical Care Time: No Attestation: On 12/25/21, the high probability of a clinically significant, sudden or life threatening deterioration of the following system(s) required my full and direct attention, intervention and personal management. The time I documented below is in addition to time spent performing reported procedures but includes the following listed in this critical care notation. Medical Decision Making - Medical Records Medical records reviewed: Yes: I reviewed the patient's medical records. - Renard Inquiry Pt receiving controlled substance: No Vital Signs: 12/25/21 00:51 Temperature 98.3 F Temperature Source Oral Pulse Rate [Left] 90 Respiratory Rate 20 Blood Pressure [Right Arm] 184/103 H Blood Pressure Mean [Right Arm] 130 02 Sat by Pulse Oximetry 98 Oxygen Delivery Method Room Air - Lab Data Lab results reviewed: Yes: I reviewed the patient's lab results. Lab Results 12/25/21 01:02: Urine Color Yellow, Urine Appearance Clear, Urine pH 6.5, Ur Specific Tiline 1.020, Urine Protein Negative, Urine Glucose (UA) Negative, Urine Ketones Negative, Urine Blood Negative, Urine Nitrate Negative, Urine Bilirubin Negative, Urine Urobilinogen 0.2, Ur Leukocyte Esterase Negative, Ur Squamous Epith Cells 5-10 12/25/21 01:16: WBC 8.8, RBC 4.59, Hgb 14.2, Hct 44.6, MCV 97.3, MCH 30.9, MCHC 31.7 L, RDW 13.6, Plt Count 311, MPV 8.6, Neut % (Auto) 72.9, Lymph % (Auto) 18.9, Alpine % (Auto) 5.0, Eos % (Auto) 2.3, Baso % (Auto) 1.0, Neut # (Auto) 6.4, Lymph # (Auto) 1.7, Alpine # (Auto) 0.4, Eos # (Auto) 0.2, Baso # (Auto) 0.1, ESR 19 12/25/21 01:16: Sodium 140, Potassium 4.0, Chloride 105, Carbon Dioxide 27, Anion Gap 12.0, BUN 13, Creatinine 0.60, Estimated Creat Clear 55, Estimated GFR 102, Est GFR ( Amer) 123, Glucose 142 H, Calcium 9.5, Total Bilirubin < 0.1 L, AST 30, ALT 30, Alkaline Phosphatase 153 H, Total Protein 7.2, Albumin 4.2, Globulin 3.0, Albumin/Globulin Ratio 1.4, Amylase 46, Lipase 57 12/25/21 01:16: C-Reactive Protein 1.6, Procalcitonin 0.053 Result diagrams: 12/25/21 01:16 12/25/21 01:16 Orders (Tests/Meds): ED MEDICATIONS Discontinued Medications Generic Name Dose Route Start Last Admin Trade Name Freq PRN Reason Stop Dose Admin Iopamidol 75 ml 12/25/21 02:32 12/25/21 02:33 Iopamidol-370 (76%);100ml Bottle IV 12/25/21 02:33 75 ml ONCE ONE Administration Sodium Chloride 10 ml 12/25/21 02:32 12/25/21 02:33 Sodium Chloride 0.9% 10ml Syr (Rad Only) IV 12/25/21 02:33 10 ml ONCE ONE Administration - Radiology Data #1 Image(s): Chest Image Reviewed: Yes I have reviewed radiologist's interpretation Preliminary Findings: Normal/NAD - CT Data CT Scan: Abdomen, Pelvis Time Received: 04:[address] Reviewed: Yes: I have viewed the radiologist's interpretation Preliminary Findings: Abnormal - Physician Consults Physician Consulted: abhianv isaac Reason -: Pt condition Medical Decision Narrative: has ongoing issues with appendix and will be seen by next week - stable exam and labs Nausea/Vomiting/Diarrhea HPI - General Chief complaint: Abdominal Pain Stated complaint: Abdominal pain Time Seen by Provider: 12/25/21 01:15 Mode of Arrival: Ambulatory Source of Information: Patient, Medical Record Limitations: No Limitations Description of Symptoms (Recalled from ER Triage Doc. by RN): pt co of pain in the abdoman from left to right then down her side the pt believes she had a rough colonoscopy at [facility] and and this is an after effect. t
--- NOTE | 2021-12-25 03:04 | PC.NURSE ---
rounded on pt. pt resting with eyes closed.
--- NOTE | 2021-12-25 03:23 | PC.NURSE ---
josh on phone with [facility] @ this time
--- NOTE | 2021-12-25 04:08 | PC.NURSE ---
PC to MD's for consult with Dr. Cheko Zaragoza, Dr. Zaragoza not manager global communications with connect us with manager global communications surgery team
[2021-12-25 04:13] LABS: C-Reactive Protein 1.6 mg/L (0-4)
--- NOTE | 2021-12-25 04:21 | PC.NURSE ---
called xray to burned disc of ct scans for pt
[2021-12-25 04:26] LABS: Procalcitonin 0.053 ng/mL (0.0-2.0)
[2021-12-25 04:31] VITALS: BP 176/89; PULSE 87; RESP 16; TEMP 36.8; O2SAT 97
== END 2021-12-25 04:56 | disposition home or self-care (01) ==
PROVIDERS: Emergency Provider Emergency Medicine; PCP Family Medicine
DX: R10.31 Right lower quadrant pain (principal); K38.9 Disease of appendix, unspecified
CPT/HCPCS: 71046; 74177; 80053; 81001; 82150; 83690; 84145; 85025; 85651; 86140; 99284; Q9967